=== PATIENT | female | born 2000 | race Caucasian/White ===

== ENCOUNTER 2018-06-19 19:40 | Emergency (ER) | payer OTHER ==
[~2018-06-19] VITALS: Ht 180.3 cm; Wt 79.0 kg
[2018-06-19] MEDS ORDERED: AMOX/K CLAV875 M1 PO (20:49)
[2018-06-19 21:05] VITALS: BP 124/76
== END 2018-06-19 21:07 | disposition home or self-care (01) | DRG 605 ==
LOC: ED 19:40
DX: S71.151A Open bite, right thigh, initial encounter (principal); W54.0XXA Bitten by dog, initial encounter